=== PATIENT | female | born 1995 | race American Indian/Alaskan Native ===

== ENCOUNTER → 2022-01-02 | Emergency (ER) | payer MEDICAID ==
[2022-01-02 18:18] VITALS: BP 125/66
== END | disposition left against medical advice (07) ==
LOC: ED 17:48
DX: O26.892 Other specified pregnancy related conditions, second trimester (principal); R10.9 Unspecified abdominal pain; Z53.21 Procedure and treatment not carried out due to patient leaving prior to being seen by health care provider